=== PATIENT | female | born 1970 ===

== ENCOUNTER 2017-11-08 11:04 | Emergency (ER) | payer OTHER ==
[~2017-11-08] VITALS: Ht 160 cm; Wt 56.7 kg
[2017-11-08] MEDS ORDERED: INDERAL LA80 MG (11:16)
[2017-11-08] MEDS ORDERED: SKELAXIN800 MG PO (13:21)
== END 2017-11-08 13:26 | disposition home or self-care (01) ==
LOC: ER 11:04
DX: R42 Dizziness and giddiness (principal); J32.8 Other chronic sinusitis

== ENCOUNTER 2018-01-08 07:50 | Emergency (ER) | payer OTHER ==
[~2018-01-08] VITALS: Ht 160 cm; Wt 56.7 kg
[~2018-01-08 07:50] MED LIST: INDERAL LA80 MG; SKELAXIN800 MG PO
== END 2018-01-08 10:49 | disposition home or self-care (01) ==
LOC: ER 07:50
DX: T28.0XXA Burn of mouth and pharynx, initial encounter (principal); X10.1XXA Contact with hot food, initial encounter; Y93.89 Activity, other specified; Y92.89 Other specified places as the place of occurrence of the external cause; Y99.8 Other external cause status

== ENCOUNTER → 2018-03-06 | Emergency (ER) | payer OTHER ==
[~2018-03-06] VITALS: Ht 160 cm; Wt 59.0 kg
== END | disposition home or self-care (01) ==
LOC: ER 12:38
DX: K58.9 Irritable bowel syndrome, unspecified (principal); R10.11 Right upper quadrant pain

== ENCOUNTER → 2018-07-09 | Emergency (ER) | payer OTHER ==
[~2018-07-09] VITALS: Ht 165.1 cm; Wt 63.5 kg
== END | disposition left against medical advice (07) ==
LOC: ER 15:26
DX: Z53.20 Procedure and treatment not carried out because of patient's decision for unspecified reasons (principal)